=== PATIENT | male | born 1960 | race Caucasian/White ===

== ENCOUNTER 2019-09-16 19:14 | Emergency (ER) | payer SELFPAY ==
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
[2019-09-16 19:21] LABS: Glucose Point of Care 87 (65-105)
--- NOTE | 2019-09-16 22:16 | PC.NURSE ---
See code sheet.
== END 2019-09-16 22:40 | disposition expired ==
LOC: ANHED 19:45
PROVIDERS: Emergency Provider Emergency Medicine
DX: I46.9 Cardiac arrest, cause unspecified (principal)
CPT/HCPCS: 92950; 99285